=== PATIENT | male | born 1975 | race African-American/Black ===

== ENCOUNTER 2022-11-12 08:23 | Emergency (ER) | payer MEDICAID, OTHER ==
[~2022-11-12] VITALS: Ht 180.3 cm; Wt 75.0 kg
[2022-11-12] MEDS ORDERED: SODIUM CHLORIDE 0.9% 1,000 ML IVB ONE (08:30)
[2022-11-12 08:40] VITALS: BP 135/96
[2022-11-12 09:07] LABS: Calcium 8.3 mg/dL (8.5-10.1); Potassium 3.8 mmol/L (3.5-5.1)
[2022-11-12 09:10] LABS: BUN/Creatinine Ratio 15.2; Bilirubin, Total 0.7 mg/dL (0.2-1.0); Total Protein 7.2 g/dL (6.4-8.2)
[2022-11-12 09:12] LABS: Basophils # (auto) 0.1 10 ^3/uL (0-0.2); Eosinophils # (auto) 0 10 ^3/uL (0-0.8); Eosinophils % (auto) 0.3 % (0.0-7.0); Lymphocytes # (auto) 1.7 10 ^3/uL (0.4-5.4); Red Blood Cells 4.59 10^6/uL (4.5-5.90)
[2022-11-12 09:14] LABS: Basophils % (auto) 1.1 % (0.0-2.0); Hemoglobin 15.9 g/dL (13.5-17.5); Lymphocytes % (auto) 17.4 % (10.0-50.0); Mean Corpuscular Hemoglobin 34.6 pg (28.0-32.0); Mean Corpuscular Hgb Conc. 33.1 g/dL (32.0-36.0); Mean Corpuscular Volume 104.4 fL (80.0-100.0); Monocytes # (auto) 0.9 10 ^3/uL (0-1.3); Monocytes % (auto) 9.2 % (0.0-12.0); Nucleated Red Blood Cells % 0.1 %; Red Cell Distribution Width 14.1 % (11.8-14.3); White Blood Cell 9.8 10^3/uL (4.4-10.8)
== END 2022-11-12 13:57 | disposition left against medical advice (07) ==
LOC: EDBD 08:23 → ER 08:23
DX: F10.129 Alcohol abuse with intoxication, unspecified (principal); R51.9 Headache, unspecified; F12.10 Cannabis abuse, uncomplicated; Y90.8 Blood alcohol level of 240 mg/100 ml or more
CPT/HCPCS: 36415; 70450; 80053; 80320; 85025

== ENCOUNTER 2024-05-27 18:23 | Emergency (ER) | payer MEDICAID ==
[~2024-05-27] VITALS: Ht 172.7 cm; Wt 90.9 kg
[2024-05-27 18:23] VITALS: BP 115/84; PULSE 84; RESP 16; TEMP 98; O2SAT 96
[2024-05-27] MEDS ORDERED: ACE3T PO (21:21)
[2024-05-27] MEDS ORDERED: CYCL-837 PO (21:21)
[2024-05-27] MEDS: ONDANSETRON ODT 4 MG TAB PO ONE (21:53)
[2024-05-27] MEDS: HYDROcodone-ACET 5/325MG TAB PO ONE (21:54)
== END 2024-05-27 22:04 | disposition home or self-care (01) ==
LOC: ER 18:23 → EDUNIT# 18:23 → EDBD 18:23 → ER 22:04
DX: S16.1XXA Strain of muscle, fascia and tendon at neck level, initial encounter (principal); S39.012A Strain of muscle, fascia and tendon of lower back, initial encounter; F15.90 Other stimulant use, unspecified, uncomplicated; Z98.890 Other specified postprocedural states; Z79.899 Other long term (current) drug therapy; V59.59XA Passenger in pick-up truck or van injured in collision with other motor vehicles in traffic accident, initial encounter; Y93.89 Activity, other specified; Y92.89 Other specified places as the place of occurrence of the external cause; Y99.8 Other external cause status
CPT/HCPCS: 72100; 72125; 99284; Q0162